=== PATIENT | female | born 1995 | race Caucasian/White ===

== ENCOUNTER 2017-01-27 21:49 | Emergency (ER) | payer OTHER, SELFPAY ==
[~2017-01-27] VITALS: Ht 160 cm; Wt 55.8 kg
[2017-01-28 03:14] LABS: BASO % 0.5 % (0.0-1.0); EOS # 0.1 K/mm3 (0.0-0.50); EOS % 1.2 % (0.0-3.0); LARGE UNSTAINED CELL # 0.2 K/mm3 (0.0-0.4); LYMPH # 2.1 K/mm3 (1.5-6.5); LYMPH % 29.7 % (24.0-44.0); MEAN CORPUSCULAR HEMOGLOBIN 30.4 pg (27.0-33.0); MEAN CORPUSCULAR HGB CONC 34.2 g/dl (32.0-36.5); MEAN CORPUSCULAR VOLUME 89.1 fl (80.0-96.0); MONO # 0.4 K/mm3 (0.0-0.8); MONO % 5.4 % (0.0-5.0); NEUTROPHILS # 4.3 K/mm3 (1.8-7.7); NEUTROPHILS % 60.2 % (36.0-66.0); PLATELET COUNT, AUTOMATED 261 k/mm3 (150-450); RED CELL DISTRIBUTION WIDTH 12.7 % (11.5-14.5); WHITE BLOOD COUNT 7.1 K/mm3 (4.0-10.0)
[2017-01-28] MEDS ORDERED: NS 1,000 ML IV ONE (03:15)
[2017-01-28 03:18] LABS: CONTROL LINE UCG INT CTR LINE PRESENT
[2017-01-28 03:43] LABS: ANION GAP 9 MEQ/L (8-16); BLOOD UREA NITROGEN 10 MG/DL (7-18); CALCIUM LEVEL 8.2 MG/DL (8.5-10.1); CARBON DIOXIDE LEVEL 26 MEQ/L (21-32); CHLORIDE LEVEL 105 MEQ/L (98-107); CREATININE FOR GFR 0.67 MG/DL (0.55-1.02); GLUCOSE, FASTING 87 MG/DL (70-105); POTASSIUM SERUM 3.8 MEQ/L (3.5-5.1); SODIUM LEVEL 140 MEQ/L (136-145)
[2017-01-28] MEDS ORDERED: MACR100C3 PO (03:53)
[2017-01-28 05:47] VITALS: BP 112/63
--- NOTE | 2017-01-29 08:58 | ECGEPIP ---
Stationary ECG Study [facility] - ED Test Date: 2017-01-28 Pat Name: ISAURO KELLY Department: Room: - Gender: F Veget[employer] Sc[employer]ion: [place] : 1995 Requested By: SAMUEL Johnson Order Number: [id number] Reading MD: Nathaly Nunez Measurements Intervals [place] Rate: 82 P: 38 CT: 156 QRS: 84 QRSD: 91 T: 17 QT: 359 QTc: 421 Interpretive Statements SINUS RHYTHM NO PRIOR FOR COMPARISON Electronically Signed On 01-29-2017 8:57:57 EST by Nathaly Nunez
== END 2017-01-28 05:49 | disposition home or self-care (01) ==
LOC: M ED 23:12
DX: R55 Syncope and collapse (principal); N39.0 Urinary tract infection, site not specified; Z32.01 Encounter for pregnancy test, result positive; Z88.2 Allergy status to sulfonamides

== ENCOUNTER → 2017-02-02 | Outpatient (CLI) | payer OTHER, SELFPAY ==
[~2017-02-02] MED LIST: MACR100C3 PO
[2017-02-02 13:24] LABS: BASO % 0.4 % (0.0-1.0); EOS % 0.7 % (0.0-3.0); LARGE UNSTAINED CELL # 0.1 K/mm3 (0.0-0.4); LARGE UNSTAINED CELL % 1.4 % (0.0-4.0); LYMPH # 1.3 K/mm3 (1.5-6.5); LYMPH % 20.7 % (24.0-44.0); MEAN CORPUSCULAR HEMOGLOBIN 29.8 pg (27.0-33.0); MEAN CORPUSCULAR HGB CONC 33.6 g/dl (32.0-36.5); MEAN CORPUSCULAR VOLUME 88.6 fl (80.0-96.0); MONO # 0.3 K/mm3 (0.0-0.8); MONO % 5.6 % (0.0-5.0); NEUTROPHILS # 4.3 K/mm3 (1.8-7.7); NEUTROPHILS % 71.1 % (36.0-66.0); PLATELET COUNT, AUTOMATED 252 k/mm3 (150-450); RED CELL DISTRIBUTION WIDTH 12.5 % (11.5-14.5)
[2017-02-02 13:42] LABS: HBsAg Prenatal NEGATIVE (NEGATIVE)
[2017-02-02 14:14] LABS: HIV SCRN NEGATIVE (NEGATIVE); HIV SCRN1 NEGATIVE (NEGATIVE)
[2017-02-02 14:15] LABS: CONTROL LINE INT CTR LINE PRESENT
== END ==
LOC: M LAB 12:36
PROVIDERS: ATTEND Advanced Practice Midwife
DX: Z34.81 Encounter for supervision of other normal pregnancy, first trimester (principal)

== ENCOUNTER 2017-04-05 18:31 | Emergency (ER) | payer MEDICAID, OTHER, SELFPAY ==
[~2017-04-05] VITALS: Ht 160 cm; Wt 64.4 kg
[2017-04-05] MEDS ORDERED: SALI0.653 (20:11)
[2017-04-05 20:18] VITALS: BP 104/61
== END 2017-04-05 20:19 | disposition home or self-care (01) ==
LOC: M ED 19:28
DX: O99.512 Diseases of the respiratory system complicating pregnancy, second trimester (principal); H65.191 Other acute nonsuppurative otitis media, right ear; J06.9 Acute upper respiratory infection, unspecified; Z88.2 Allergy status to sulfonamides; Z3A.16 16 weeks gestation of pregnancy

== ENCOUNTER 2017-06-01 23:21 | Outpatient (CLI) | payer MEDICAID, OTHER ==
[~2017-06-01] VITALS: Ht 160 cm; Wt 82.0 kg
[~2017-06-01 23:21] MED LIST changes: -MACR100C3 PO; +MACR100C43 PO; +SALI0.6523
[2017-06-01 23:31] VITALS: BP 122/65
[2017-06-01] MEDS ORDERED: LR 1,000 ML IV ONE (23:45)
[2017-06-02 00:17] LABS: BASO % 0.3 % (0.0-1.0); EOS # 0.1 K/mm3 (0.0-0.50); EOS % 1.1 % (0.0-3.0); LARGE UNSTAINED CELL # 0.2 K/mm3 (0.0-0.4); LARGE UNSTAINED CELL % 2.7 % (0.0-4.0); LYMPH # 1.9 K/mm3 (1.5-6.5); LYMPH % 23.7 % (24.0-44.0); MEAN CORPUSCULAR HEMOGLOBIN 29.9 pg (27.0-33.0); MEAN CORPUSCULAR HGB CONC 33.4 g/dl (32.0-36.5); MEAN CORPUSCULAR VOLUME 89.5 fl (80.0-96.0); MONO # 0.5 K/mm3 (0.0-0.8); MONO % 6.6 % (0.0-5.0); NEUTROPHILS # 5.4 K/mm3 (1.8-7.7); NEUTROPHILS % 65.6 % (36.0-66.0); PLATELET COUNT, AUTOMATED 266 k/mm3 (150-450); WHITE BLOOD COUNT 8.2 K/mm3 (4.0-10.0)
--- NOTE | 2017-06-02 01:40 | REPUSA ---
CLINICAL HISTORY: Pelvic pain. TECHNIQUE: Realtime sonographic images were obtained in multiple projections via TA approach. The exa mination was performed by the kosher dietary service supervisor and still images were submitted for interpretation. COMMENTS: Single, live intrauterine gestation. Vertex presentation. motion was identified. heart rate 136 beats per minute. Anterior placenta. No evidence of placenta previa. The amniotic fluid is upper normal in size. Amniotic fluid index 20 cm. Resistive index and a umbilical cord is 0.61. Systolic/diastolic ratio in the umbilical cord at 2.55 The cervix measured at 4.2 cm. The lateral ventricle measures 4.9 mm. Unremarkable maternal adnexa. Estimated gestational age 24 weeks and 5 days. Estimated delivery date on 09/17/2017. gender was documented as made. Nuchal CORD was not seen. IMPRESSION: Single, live intrauterine gestation as above. Thank you for your kind referral of this patient.
[2017-09-25] MEDS ORDERED: PRENTAB9 PO (17:12)
[2017-09-27] MEDS ORDERED: COLA100C5 PO (07:07)
[2017-09-27] MEDS ORDERED: IBUP-1114 PO (07:07)
[2017-09-27] MEDS ORDERED: ACET50TA PO (07:07)
== END 2017-06-02 03:05 | disposition home or self-care (01) ==
LOC: M LDO 23:21
PROVIDERS: ATTEND Obstetrics & Gynecology
DX: O26.892 Other specified pregnancy related conditions, second trimester (principal); Z3A.24 24 weeks gestation of pregnancy; N89.9 Noninflammatory disorder of vagina, unspecified; Z88.1 Allergy status to other antibiotic agents

== ENCOUNTER 2017-08-23 21:38 | Outpatient (CLI) | payer OTHER ==
[~2017-08-23] VITALS: Ht 160 cm; Wt 93.7 kg
[2017-08-23 21:49] VITALS: BP 123/69
[2017-08-23 22:18] VITALS: BP 123/69
[2017-08-24 00:32] VITALS: BP 116/57
[2017-09-25] MEDS ORDERED: PRENTAB9 PO (17:12)
[2017-09-27] MEDS ORDERED: COLA100C5 PO (07:07)
[2017-09-27] MEDS ORDERED: ACET50TA PO (07:07)
[2017-09-27] MEDS ORDERED: IBUP-1114 PO (07:07)
== END 2017-08-24 01:10 | disposition home or self-care (01) ==
LOC: M LDO 21:38
PROVIDERS: ATTEND Advanced Practice Midwife
DX: O47.03 False labor before 37 completed weeks of gestation, third trimester (principal); Z3A.35 35 weeks gestation of pregnancy; Z88.2 Allergy status to sulfonamides

== ENCOUNTER 2017-09-14 19:32 | Outpatient (CLI) | payer OTHER ==
[~2017-09-14] VITALS: Ht 160 cm; Wt 92.8 kg
[2017-09-14 21:42] LABS: MEAN CORPUSCULAR HEMOGLOBIN 23.6 pg (27.0-33.0); MEAN CORPUSCULAR HGB CONC 30.7 g/dl (32.0-36.5); MEAN CORPUSCULAR VOLUME 76.9 fl (80.0-96.0); PLATELET COUNT, AUTOMATED 262 10^3/uL (150-450); RED CELL DISTRIBUTION WIDTH 15.7 % (11.5-14.5); WHITE BLOOD COUNT 9.8 10^3/uL (4.0-10.0)
[2017-09-14 22:02] LABS: ALBUMIN 2.6 GM/DL (3.2-5.2); ALBUMIN/GLOBULIN RATIO 0.72 (1.00-1.93); ALKALINE PHOSPHATASE 164 U/L (45-117); ALT/SGPT 15 U/L (12-78); ANION GAP 9 MEQ/L (8-16); AST/SGOT 9 U/L (15-37); BILIRUBIN,TOTAL 0.4 MG/DL (0.2-1.0); BLOOD UREA NITROGEN 10 MG/DL (7-18); CALCIUM LEVEL 8.2 MG/DL (8.5-10.1); CARBON DIOXIDE LEVEL 25 MEQ/L (21-32); CHLORIDE LEVEL 104 MEQ/L (98-107); CREATININE FOR GFR 0.77 MG/DL (0.55-1.02); GLUCOSE, FASTING 80 MG/DL (70-105); POTASSIUM SERUM 3.8 MEQ/L (3.5-5.1); SODIUM LEVEL 138 MEQ/L (136-145); TOTAL PROTEIN 6.2 GM/DL (6.4-8.2)
[2017-09-25] MEDS ORDERED: PRENTAB9 PO (17:12)
[2017-09-27] MEDS ORDERED: IBUP-1114 PO (07:07)
[2017-09-27] MEDS ORDERED: COLA100C5 PO (07:07)
[2017-09-27] MEDS ORDERED: ACET50TA PO (07:07)
== END 2017-09-14 22:15 | disposition home or self-care (01) ==
LOC: M LDO 19:32
PROVIDERS: ATTEND Obstetrics & Gynecology
DX: O47.1 False labor at or after 37 completed weeks of gestation (principal); Z3A.38 38 weeks gestation of pregnancy

== ENCOUNTER 2017-09-18 11:57 | Emergency (ER) | payer OTHER ==
[~2017-09-18] VITALS: Ht 160 cm; Wt 93.2 kg
[2017-09-18] MEDS ORDERED: BENA25CA4 PO (12:54)
[2017-09-18 13:17] VITALS: BP 109/64
[2017-09-25] MEDS ORDERED: PRENTAB9 PO (17:12)
[2017-09-27] MEDS ORDERED: ACET50TA PO (07:07)
[2017-09-27] MEDS ORDERED: IBUP-1114 PO (07:07)
[2017-09-27] MEDS ORDERED: COLA100C5 PO (07:07)
== END 2017-09-18 13:24 | disposition home or self-care (01) ==
LOC: M ED 11:57
DX: O26.86 Pruritic urticarial papules and plaques of pregnancy (PUPPP) (principal); Z3A.39 39 weeks gestation of pregnancy; Z88.2 Allergy status to sulfonamides